=== PATIENT | male | born 1980 | race Caucasian/White ===

== ENCOUNTER 2020-03-04 19:36 | Outpatient (REF) | payer MEDICARE, MEDICAID, SELFPAY ==
--- NOTE | 2020-03-04 | MR_ITS ---
EXAMINATION: MR BRAIN WITHOUT CONTRAST CLINICAL INFORMATION: Seizure. Episodes of disassociation and fogging. COMPARISON: None available. TECHNIQUE: MRI of the brain was obtained using routine sequences without contrast. FINDINGS: No focal restricted diffusion is demonstrated to suggest acute or subacute cerebral ischemia. No evidence of acute or chronic hemorrhagic products on heme-sensitive imaging. Minimal nonspecific scattered periventricular and deep white matter T2 FLAIR hyperintensities. Otherwise, normal parenchymal signal characteristics. The ventricles are normal in morphology and size. No abnormal mass effect. No midline shift. The hippocampi are symmetric in size, contour, and signal intensity, demonstrating no convincing imaging evidence of mesial temporal sclerosis. The temporal horns appear symmetric. Normal appearance of the pituitary gland. No abnormalities of the posterior fossa with normal appearance of the brainstem and cerebellum. The cerebellar tonsils are positioned at the level the foramen magnum. Normal arterial and venous vascular flow voids are present. Normal, homogeneous marrow signal. Mild mucosal thickening of the paranasal sinuses. No signal abnormalities within the mastoids. IMPRESSION: 1. No acute intracranial abnormalities. 2. Minimal nonspecific white matter changes. Otherwise, no demonstrated abnormalities to explain the patient's spells.
== END 2020-03-04 19:37 | disposition home or self-care (01) ==
LOC: HO.MRI 19:36
PROVIDERS: Visit Provider Psychiatry & Neurology Neurology
DX: R56.9 Unspecified convulsions (principal)
CPT/HCPCS: 70551

== ENCOUNTER 2020-04-07 12:52 | Outpatient (REF) | payer MEDICARE, MEDICAID, SELFPAY ==
--- NOTE | 2020-04-07 12:56 | EEG_ITS ---
24-hour ambulatory EEG. The waking background activity consists of a well-defined symmetrical posterior 10 hertz alpha frequency seen and posteriorly intermixed anteriorly with low-voltage fast frequencies. Drowsiness is characterized by attenuation of the background activity and diffuse theta. During sleep, symmetrical frontal central sleep spindles develop over both hemispheres and stages 1 through 3 of sleep are noted. 2 or 3 isolated low amplitude single sharp and slow wave complexes are seen over the left hemisphere. The patient remains asymptomatic. IMPRESSION: This 24-hour ambulatory EEG is within normal limits. Two isolated single low amplitude sharp and slow complexes are seen of over the left hemisphere that could possibly suggest a focus of some cerebral irritability in the left hemisphere, but these findings are not developed well enough to be diagnostic for a seizure disorder. Clinical correlation is suggested. MD MAULIK Wilson/DWAYNE / [id number]
== END 2020-04-07 12:53 | disposition home or self-care (01) ==
LOC: HO.NEURO 12:52
PROVIDERS: PCP Hospitalist; Visit Provider Psychiatry & Neurology Neurology
DX: R56.9 Unspecified convulsions (principal)
CPT/HCPCS: 95708